=== PATIENT | male | born 1980 | race African-American/Black ===

== ENCOUNTER 2020-09-07 11:18 | Emergency (ER) | payer OTHER ==
[~2020-09-07] VITALS: Ht 165.1 cm; Wt 95.3 kg
== END 2020-09-07 19:30 | disposition home or self-care (01) ==
LOC: ER 11:18
DX: K61.0 Anal abscess (principal); L73.2 Hidradenitis suppurativa; B95.1 Streptococcus, group B, as the cause of diseases classified elsewhere; B96.89 Other specified bacterial agents as the cause of diseases classified elsewhere; Z03.818 Encounter for observation for suspected exposure to other biological agents ruled out